=== PATIENT | female | born 1995 | race Caucasian/White ===

== ENCOUNTER 2020-05-17 20:19 | Emergency (ER) | payer BC ==
[~2020-05-17] VITALS: Ht 152.4 cm; Wt 56.7 kg
[2020-05-17 20:20] VITALS: BP_SYST 164
--- NOTE | 2020-05-17 20:20 | NUR ---
Placed in room 6 . Placed on cardiac cath rn, blood pressure machine and pulse oximeter. To gown for exam. Side rails up. Report given to LEA DAVILA.
--- NOTE | 2020-05-17 20:30 | NUR ---
TECH AT BEDSIDE COMPLETING EKG PER MD ORDER.
--- NOTE | 2020-05-17 20:56 | NUR ---
DR. EDUARDO AT BEDSIDE TO EVALUATE PT STATUS
[2020-05-17 21:38] VITALS: BP_SYST 152
--- NOTE | 2020-05-17 21:40 | NUR ---
Patient given written and verbal discharge instructions and verbalizes understanding. ER MD discussed with patient the results and treatment provided. Patient in stable condition. ID arm band removed. No Rx given. Patient educated on pain management and to follow up with PMD. Pain Scale 0/10. Opportunity for questions provided and answered. Medication side effect fact sheet provided.
== END 2020-05-17 21:40 | disposition home or self-care (01) ==
LOC: SED 20:19
DX: I49.3 Ventricular premature depolarization (principal); R00.2 Palpitations
CPT/HCPCS: 93005; 99283